=== PATIENT | female | born 1980 | race Caucasian/White ===

== ENCOUNTER 2016-05-04 09:05 | Emergency (ER) | payer SELFPAY ==
[~2016-05-04] VITALS: Ht 154.9 cm; Wt 63.5 kg
--- NOTE | 2016-05-04 09:15 | NUR ---
Pt bib ra for n/v, drank 3 drinks, took adderal. Denies any pain at this time. Placed on monitor.VSS. Pt complains of nausea/vomiting. Awaiting md orders to carry out. Made pt comfortable . Safety measures in placed.
[2016-05-04] MEDS ORDERED: IV SET PRIMARY 1 EA INFUS.SET MC ONE (09:26)
[2016-05-04] MEDS ORDERED: ONDANSETRON HCL/PF 4 MG/2 ML VIAL ONE ×2 (09:26→11:13)
[2016-05-04] MEDS ORDERED: IV NS 0.9% 1,000 ML ONE ×2 (09:26→11:13)
[2016-05-04] MEDS ORDERED: ONDANSETRON HCL/PF 4 MG/2 ML VIAL IVP ONE ×2 (09:30→11:00)
[2016-05-04] MEDS ORDERED: IV NS 0.9% 1,000 ML BAG IV ONE ×2 (09:30→11:00)
--- NOTE | 2016-05-04 09:30 | NUR ---
[facility] #20 IV ACCESS
[2016-05-04 09:31] LABS: BASOPHILS # (AUTO) 0.1 /CMM (0.0-0.2); BASOPHILS % (AUTO) 1.2 % (0.0-2.0); EOSINOPHILS % (AUTO) 0.1 % (0.0-6.0); HEMATOCRIT 40 % (33-45); HEMOGLOBIN 13.3 g/dL (11.5-14.8); LYMPHOCYTES # (AUTO) 0.8 /CMM (0.8-4.8); LYMPHOCYTES % (AUTO) 13.2 % (20.0-44.0); MEAN CORPUSCULAR HEMOGLOBIN 32 PG (26.0-33.0); MEAN CORPUSCULAR HGB CONC 34 g/dl (31.0-36.0); MEAN CORPUSCULAR VOLUME 95 fL (82-100); MONOCYTES # (AUTO) 0.2 /CMM (0.1-1.30); MONOCYTES % (AUTO) 2.5 % (2.0-12.0); NEUTROPHILS # (AUTO) 4.9 /CMM (1.8-8.9); PLATELET COUNT (AUTO) 226 /CMM (150-450); RDW COEFFICIENT OF VARIATION 11.8 (11.5-15.0); RED BLOOD CELL COUNT(AUTO) 4.16 MIL/uL (4.0-5.2)
[2016-05-04 09:38] LABS: CALCIUM, SERUM 8.7 mg/dL (8.5-10.1); CREATININE 0.7 mg/dL (0.6-1.3); POTASSIUM 3.6 mmol/L (3.5-5.1)
[2016-05-04 09:44] LABS: ALBUMIN 4.5 g/dL (3.4-5.0); BILIRUBIN,DIRECT 0.1 mg/dL (0.0-0.2); BILIRUBIN,TOTAL 0.5 mg/dL (0.2-1.0); TOTAL PROTEIN, SERUM 7.8 g/dL (6.4-8.2)
--- NOTE | 2016-05-04 10:04 | NUR ---
COLLECTED URINE SAMPLE SENT TO LAB
[2016-05-04 10:08] LABS: APPEARANCE,URINE Clear (CLEAR); BILIRUBIN,URINE Negative (NEGATIVE); BLOOD, URINE Trace-intact Ery/uL (NEGATIVE); COLOR,URINE Yellow (YELLOW); KETONES,URINE Negative (NEGATIVE); LEUKOCYTE ESTERASE ,URINE Negative (NEGATIVE); NITRITE, URINE Negative (NEGATIVE); PROTEIN,URINE Negative (NEGATIVE); UGLUCOSE Negative (NEGATIVE); UROBILINOGEN,URINE 0.2 EU/dL (0.2)
[2016-05-04 10:09] LABS: PREGNANCY TEST URINE QUAL NEGATIVE (NEGATIVE)
[2016-05-04 10:21] LABS: ADD URINE CULTURE NO; BACTERIA,URINE RARE /HPF (None Seen); RBC,URINE 0-2 /HPF (0-2); SQUAMOUS EPITHELIAL CELL,UR FEW /HPF (None Seen)
[2016-05-04] MEDS ORDERED: ACETAMINOPHEN ES 500 MG TABLET ONE (11:03)
--- NOTE | 2016-05-04 12:18 | NUR ---
IV removed. Catheter intact and site benign. Pressure and 4x4 applied to site. No bleeding noted.
--- NOTE | 2016-05-04 12:18 | NUR ---
Patient discharged to home in stable condition. Written and verbal after care instructions given. Patient verbalizes understanding of instruction.
[2016-05-04 12:19] VITALS: BP 110/60
== END 2016-05-04 10:18 | disposition home or self-care (01) ==
LOC: ER 09:08
DX: R11.11 Vomiting without nausea (principal); I10 Essential (primary) hypertension; F32.9 Major depressive disorder, single episode, unspecified
CPT/HCPCS: 36415; 80048; 80076; 81001; 83690; 84703; 85025; 96361; 96374; 96376; 99284; A4606; J2405 ×2; J7030 ×2; Z7610; 81000-TC